=== PATIENT | female | born 1940 | race American Indian/Alaskan Native ===

== ENCOUNTER 2016-11-01 17:22 | Inpatient (IN) | payer MEDICARE ==
[2016-11-01 18:19] LABS: Basophils % (Auto) 0.3 % (0.0-1.8); Eosinophils % (Auto) 1.6 % (0.0-4.3); Hematocrit 35.5 % (30.3-42.9); Hemoglobin 11.9 gm/dl (10.1-14.3); Mean Corpuscular HGB Conc 34 % (30-34); Mean Corpuscular Hemoglobin 32 pg (28-32); Mean Corpuscular Volume 94 fl (79-97); Platelet Count 250 K/mm3 (140-440); Red Blood Count 3.77 M/mm3 (3.65-5.03); Red Cell Distribution Width 13.8 % (13.2-15.2); White Blood Count 5.6 K/mm3 (4.5-11.0)
[2016-11-01] MEDS ORDERED: ASPIRIN PO ONE (18:32)
[2016-11-01 18:38] LABS: Anion Gap 19 mmol/L; BUN/Creatinine Ratio 16.66; Blood Urea Nitrogen 10 mg/dL (7-17); Calcium 9.1 mg/dL (8.4-10.2); Carbon Dioxide 26 mmol/L (22-30); Chloride 100.3 mmol/L (98-107); Glucose 261 mg/dL (65-100); Potassium 4.5 mmol/L (3.6-5.0); Sodium 141 mmol/L (137-145)
--- NOTE | 2016-11-01 18:39 | Emergency Department Report ---
<BARBER MCCLELLAND - Last Filed: 11/01/16 19:12> ED Chest Pain HPI - General Chief Complaint: Chest Pain Stated Complaint: CHEST PAIN/ALVARO Time Seen by Provider: 11/01/16 18:24 - Related Data Home Medications Medication Instructions Recorded Confirmed Last Taken Carvedilol [Coreg] 25 mg PO BID 11/01/16 11/01/16 Unknown Furosemide [Lasix] 20 mg PO QDAY 11/01/16 11/01/16 Unknown Isosorbide Mononitrate 30 mg PO DAILY 11/01/16 11/01/16 Unknown Lisinopril [Zestril TAB] 40 mg PO QDAY 11/01/16 11/01/16 Unknown Nitroglycerin [Nitrostat] 0.4 mg SL Q5M PRN 11/01/16 11/01/16 Unknown Pravastatin (Nf) [Pravachol] 40 mg PO QHS 11/01/16 11/01/16 Unknown amLODIPine [Norvasc] 5 mg PO DAILY 11/01/16 11/01/16 Unknown glipiZIDE [Glucotrol] 5 mg PO QDAY 11/01/16 11/01/16 Unknown metFORMIN [Glucophage] 500 mg PO BID 11/01/16 11/01/16 Unknown Allergies Allergy/AdvReac Type Severity Reaction Status Date / Time morphine AdvReac Unknown Verified 11/01/16 17:45 ED Review of Systems ROS: Stated complaint: CHEST PAIN/ALVARO Other details as noted in HPI ED Past Medical Hx - Medications Home Medications: Home Medications Medication Instructions Recorded Confirmed Last Taken Type Carvedilol [Coreg] 25 mg PO BID 11/01/16 11/01/16 Unknown History Furosemide [Lasix] 20 mg PO QDAY 11/01/16 11/01/16 Unknown History Isosorbide Mononitrate 30 mg PO DAILY 11/01/16 11/01/16 Unknown History Lisinopril [Zestril TAB] 40 mg PO QDAY 11/01/16 11/01/16 Unknown History Nitroglycerin [Nitrostat] 0.4 mg SL Q5M PRN 11/01/16 11/01/16 Unknown History Pravastatin (Nf) [Pravachol] 40 mg PO QHS 11/01/16 11/01/16 Unknown History amLODIPine [Norvasc] 5 mg PO DAILY 11/01/16 11/01/16 Unknown History glipiZIDE [Glucotrol] 5 mg PO QDAY 11/01/16 11/01/16 Unknown History metFORMIN [Glucophage] 500 mg PO BID 11/01/16 11/01/16 Unknown History ED Course Vital Signs 11/01/16 11/01/16 17:40 19:41 Temperature 97.5 F L Respiratory 20 Rate Blood Pressure 154/89 O2 Sat by Pulse 95 98 Oximetry ED Medical Decision Making - Lab Data Result diagrams: 11/01/16 17:57 11/01/16 17:57 Laboratory Results - last 24 hr 11/01/16 11/01/16 11/01/16 17:57 17:57 17:57 WBC 5.6 RBC 3.77 Hgb 11.9 Hct 35.5 MCV 94 MCH 32 MCHC 34 RDW 13.8 Plt Count 250 Lymph % (Auto) 17.1 [place] % (Auto) 6.8 Eos % (Auto) 1.6 Baso % (Auto) 0.3 Lymph # 1.0 L [place] # 0.4 Eos # 0.1 Baso # 0.0 Seg Neutrophils % 74.2 H Seg Neutrophils # 4.2 Sodium 141 Potassium 4.5 Chloride 100.3 Carbon Dioxide 26 Anion Gap 19 BUN 10 Creatinine 0.6 L Estimated GFR > 60 BUN/Creatinine Ratio 16.66 Glucose 261 H Calcium 9.1 Total Bilirubin 0.40 Direct Bilirubin < 0.2 Indirect Bilirubin 0.2 AST 27 ALT 30 Alkaline Phosphatase 122 Troponin T < 0.010 Total Protein 7.0 Albumin 3.9 Albumin/Globulin Ratio 1.3 - Medical Decision Making I have seen and examined this patient myself. I agree with the PA or FAST FOOD MANAGER plan as discussed. 76-year-old female here with exertional chest pain. Patient will be admitted to the hospitalist service for chest pain rule out. Discussed with patient and hospitalist. Daniel Mcclelland Critical care attestation.: If time is entered above; I have spent that time in minutes in the direct care of this critically ill patient, excluding procedure time. ED Disposition Clinical Impression: Chest pain, Diabetes, Hypertension, SOB (shortness of breath) Disposition: OP ADMIT IP TO THIS HOSP Condition: Stable <CASH WALTERS - Last Filed: 11/01/16 21:04> ED Chest Pain HPI - General Source: patient, family Mode of arrival: Ambulatory Limitations: No Limitations - History of Present Illness MD Complaint: chest pain -: Sudden Onset: during exertion Pain Location: substernal, left chest Severity: moderate Quality: tightness, other (sob) Worsens With: exertion re: dyspnea. denies: nausea, vomting, diaphoresis Other Symptoms: denies: cough, fever, syncope, rash, acid taste in mouth, leg swelling, palpitations, burping Treatments Prior to Arrival: aspirin (this am) Aspirin use within the Past 7 Days: (1) Yes - Related Data On Oral Contraceptives: No Heart Score - HEART Score History: Slightly suspicious EKG: Non-specific Age: > 65 Risk factors: > 3 risk factors or hx of atherosclerotic disease Troponin: > 3x normal limit HEART Score: 7 ED Review of Systems Comment: Unobtainable due to pts medical conditions Constitutional: no symptoms reported, see HPI. denies: chills Eyes: as per HPI. denies: eye pain ENT: as per HPI. denies: ear pain, throat pain Respiratory: no symptoms reported, see HPI, shortness of breath, SOB with exertion. denies: cough, orthopnea, SOB at rest Cardiovascular: as per HPI, chest pain, dyspnea on exertion. denies: palpitations, orthopnea, edema, syncope Endocrine: no symptoms reported, see HPI. denies: excessive sweating, flushing Gastrointestinal: as per HPI. denies: abdominal pain, nausea, vomiting Genitourinary: as per HPI. denies: urgency, dysuria Musculoskeletal: as per HPI. denies: back pain Skin: as per HPI. denies: rash, lesions Neurological: as per HPI. denies: headache, weakness Psychiatric: as per HPI. denies: anxiety, depression Hematological/Lymphatic: as per HPI. denies: easy bleeding ED Past Medical Hx - Past Medical History Previous Medical History?: Yes Hx Hypertension: Yes Hx Heart Attack/AMI: No (no mi but does have stents) Hx Congestive Heart Failure: No (denies) Hx Diabetes: Yes Hx Asthma: No Hx COPD: No Additional medical history: Cardiac stents in 2007. hpld. denies chf. cpap for hilary. [place] Dr Jones - Surgical History Past Surgical History?: No - Social History Smoking Status: Never Smoker Substance Use Type: None ED Physical Exam - General Limitations: No Limitations General appearance: alert, anxious - Head Head exam: Present: atraumatic - Eye Eye exam: Present: PERRL - ENT ENT exam: Present: normal exam, mucous membranes moist - Neck Neck exam: Present: normal inspection. Absent: tenderness - Respiratory Respiratory exam: Present: other (cr lll; appears sob). Absent: normal lung sounds bilaterally, respiratory distress, wheezes, rales, rhonchi, stridor - Cardiovascular Cardiovascular Exam: Present: regular rate, normal rhythm, normal heart sounds, other (no edema). Absent: bradycardia, tachycardia, irregular rhythm, JVD - GI/Abdominal GI/Abdominal exam: Present: soft, normal bowel sounds - Rectal Rectal exam: Present: deferred - Extremities Exam Extremities exam: Present: normal inspection, normal capillary refill. Absent: full ROM, tenderness, pedal edema, joint swelling - Back Exam Back exam: Present: normal inspection, full ROM. Absent: tenderness, CVA tenderness (R), CVA tenderness (L) - Neurological Exam Neurological exam: Present: alert, oriented X3, CN II-XII intact, normal gait, reflexes normal. Absent: motor sensory deficit - Psychiatric Psychiatric exam: Present: normal affect, normal mood - Skin Skin exam: Present: warm, dry, intact, normal color ED Course - Reevaluation(s) Reevaluation #1: 11/01/16 18:39 to er w sob and cp p walking today pain does get better w rest she states its a tight feeling and she is sob she appears anxious no tachy active 76 y old saw cards just a couple months ago and she thinks she had a stress test then- not sure also report l heart slower than r- see 12 lead sat 100 on r asa labs 12 lead lbbb no pain on exam on admit; while laying in bed Dr. Mcclelland aware of pt presentation. 11/01/16 20:[address] Pt updated on plan Dr. Mauro is not taking any more patients- will admit at 2100 11/01/16 21:04 report to hosp for admit SONIDO score - Sonido Score Age > 65: (1) Yes Aspirin use within the Past 7 Days: (1) Yes 3 or more CAD Risk Factors: (1) Yes 2 or more Angina events in past 24 hrs: (1) Yes Known CAD with more than 50% Stenosis: (0) No ED Medical Decision Making - Lab Data Result diagrams: 11/01/16 17:57 11/01/16 17:57 - EKG Data -: EKG Interpreted by Me EKG shows normal: sinus rhythm (lbbb- presumed old based on what pt says about her left heart being slower than r) - EKG Data When compared to previous EKG there are: previous EKG unavailable - Radiology Data Radiology results: image reviewed interpreted by me: lll small pl effusion ? b patchy hf appearing? consistent w sob on admission cm - Differential Diagnosis ACS v non cardiac etiology cp; concern for atypical acs in Dm/elderly/femal ED Disposition Is pt being admited?: Yes Does the pt Need Aspirin: Yes Time of Disposition: 21:04
[2016-11-01 18:47] LABS: Alanine Aminotransferase 30 units/L (7-56); Albumin 3.9 g/dL (3.9-5); Albumin/Globulin Ratio 1.3 %; Alkaline Phosphatase 122 units/L (35-129)
[2016-11-01 18:58] LABS: Bilirubin,Direct < 0.2 mg/dL (0-0.2); Bilirubin,Indirect 0.2 mg/dL
[2016-11-01 19:32] LABS: INR 0.97 (0.87-1.13); Partial Thromboplastin Time 25.9 Sec. (24.2-36.6)
--- NOTE | 2016-11-01 19:58 | XRay Report ---
FINAL REPORT PROCEDURE: Chest. TECHNIQUE: Portable AP and lateral views. HISTORY: Chest pain. COMPARISON: No prior studies are available for comparison. FINDINGS: The heart size is mildly enlarged. There is moderate tortuosity of the thoracic aorta. There is some linear opacity in the left midlung consistent with subsegmental atelectasis or scarring. The lungs are otherwise clear. There are no pleural effusions. The soft tissues and regional skeleton are unremarkable. IMPRESSION: Mild cardiomegaly.
[2016-11-01] MEDS ORDERED: LASIX IV ONE (20:28)
[2016-11-01 20:45] LABS: Bacteria,Urine 1+ /HPF (Negative); Bilirubin,Urine NEG (Negative); Blood,Urine NEG (Negative); Ketones,Urine NEG (Negative); Leukocyte Esterase,Urine NEG (Negative); Nitrite,Urine NEG (Negative); Protein,Urine <15 mg/dL mg/dL (Negative); Urobilinogen,Urine < 2.0 mg/dL (<2.0)
--- NOTE | 2016-11-01 21:50 | Event Note ---
Date: 11/01/16 Dr. Pina Cards phoned and given report on pt. Pt has ICMO and ef of 30-30% on echo in 06/09 (inc from 1 y ago) LBBB old Admit w cards consult. Continue home meds He will see in am Hosp aware
[2016-11-01] MEDS ORDERED: K-DUR PO ONE (21:54)
[2016-11-01] MEDS ORDERED: NITROSTAT SL PRN (22:20)
[2016-11-01] MEDS ORDERED: D50W (25GM) Syringe IV PRN (22:21)
--- NOTE | 2016-11-01 22:24 | History and Physical Report ---
History of Present Illness Date of examination: 11/01/16 Chief complaint: Chest tightness History of present illness: 76-year-old -[place] female with past medical history significant for diabetes mellitus type 2, hypertension, hyperlipidemia, CAD status post 4 stents presented to the emergency department complaining of feeling tight around the mid chest. The type is getting worse when she is moving around. She has also associated short of breath. Patient denied any chest pain. Patient denied nausea or vomiting, palpitation, cough, leg swelling. Patient's EKG in the emergency department showed left bundle branch block and cardiology was consulted and stated that the patient had left bundle branch block on her previous EKG too. Patient has cardiomyopathy and ejection fraction of 30-35% in may 2016. REVIEW OF SYSTEMS: GENERAL: no weight change, no fatigue, no fever HEAD: no head ache EYES: no blurry vision, no acute visual loss EARS: no hearing loss, no discharge, no earache NOSE: no stuffiness, no sneezing, no discharge MOUTH, THROAT AND NECK: no bleeding gums, no sore throat, no swollen neck CARDIAC: no palpitations, + dyspnea on exertion, no orthopnea, no PND, no edema , no chest pain RESPIRATORY: no shortness of breath, no wheeze, no cough, no sputum, no hemoptysis, no asthma GI: no decreased appetite, no nausea, no vomiting, no dysphagia, no diarrhea, no constipation, no abdominal pain URINARY: no change in frequency, no urgency, no polyuria, no hematuria, no incontinence MUSCULOSKELETAL: no muscle weakness, no pain, no joint stiffness NEUROLOGIC: no loss of sensation/numbness, no tingling, no tremors, no weakness/ paralysis HEMATOLOGIC: no anemia, no easy bruising SKIN: no rashes ENDOCRINE: no heat/cold intolerance, no polyuria, no polydipsia, no thyroid problems, + diabetes PSYCHIATRIC: no anxiety, no depression, no suicidal ideations Past History Past Medical History: CAD, diabetes, hypertension, hyperlipidemia Past Surgical History: No surgical history Social history: full code. denies: smoking, alcohol abuse, prescription drug abuse, IV drug use Family history: no significant family history Medications and Allergies Allergies Allergy/AdvReac Type Severity Reaction Status Date / Time morphine AdvReac Unknown Verified 11/01/16 17:45 Penicillins AdvReac Unknown Verified 11/01/16 23:30 Home Medications Medication Instructions Recorded Confirmed Last Taken Type Carvedilol [Coreg] 25 mg PO BID 11/01/16 11/01/16 Unknown History Furosemide [Lasix] 20 mg PO QDAY 11/01/16 11/01/16 Unknown History Isosorbide Mononitrate 30 mg PO DAILY 11/01/16 11/01/16 Unknown History Lisinopril [Zestril TAB] 40 mg PO QDAY 11/01/16 11/01/16 Unknown History Nitroglycerin [Nitrostat] 0.4 mg SL Q5M PRN 11/01/16 11/01/16 Unknown History Pravastatin (Nf) [Pravachol] 40 mg PO QHS 11/01/16 11/01/16 Unknown History amLODIPine [Norvasc] 5 mg PO DAILY 11/01/16 11/01/16 Unknown History glipiZIDE [Glucotrol] 5 mg PO QDAY 11/01/16 11/01/16 Unknown History metFORMIN [Glucophage] 500 mg PO BID 11/01/16 11/01/16 Unknown History Active Meds: Active Medications Amlodipine Besylate (Norvasc) 5 mg PO DAILY [facility] Carvedilol (Coreg) 25 mg PO BID [facility] Dextrose (D50w (25gm) Syringe) 50 ml IV PRN PRN PRN Reason: Hypoglycemia Furosemide (Lasix) 20 mg IV DAILY [facility] Glipizide (Glucotrol) 5 mg PO QDAY [facility] Heparin Sodium (Porcine) (Heparin) 5,000 unit SUB-Q Q8HR [facility] Insulin Aspart (Novolog) 0 units SUB-Q ACHS [facility] PRN Reason: Protocol Lisinopril (Zestril) 40 mg PO QDAY [facility] Miscellaneous Medication (Isosorbide Mononitrate [Isosorbide Mononitrate]) 30 mg PO DAILY [facility] Miscellaneous Medication (Pravastatin (Nf)) 40 mg PO QHS [facility] Nitroglycerin (Nitrostat) 0.4 mg SL Q5M PRN PRN Reason: Chest Pain Exam - Physical Exam Narrative exam: Not in cardiopulmonary distress. The patient appeared well nourished and normally developed. Vital signs as documented. Head exam is unremarkable. No scleral icterus . Neck is without jugular venous distension, thyromegaly, or carotid bruits. Lungs are clear to auscultation. Cardiac exam reveals regular rate and Rhythm. First and second heart sounds normal. No murmurs, rubs or gallops. Abdominal exam reveals normal bowel sounds, no masses, no organomegaly and no aortic enlargement. Extremities trace pedal and pretibial edema. 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 No focal weakness. - Constitutional Vitals: Temp Pulse Resp BP Pulse Ox 97.7 F 84 20 153/86 100 11/01/16 21:04 11/01/16 21:04 11/01/16 21:04 11/01/16 21:04 11/01/16 21:04 Results - Labs CBC & Chem 7: 11/01/16 17:57 11/01/16 17:57 Labs: Laboratory Last Values WBC 5.6 K/mm3 (4.5-11.0) 11/01/16 17:57 RBC 3.77 M/mm3 (3.65-5.03) 11/01/16 17:57 Hgb 11.9 gm/dl (10.1-14.3) 11/01/16 17:57 Hct 35.5 % (30.3-42.9) 11/01/16 17:57 MCV 94 fl (79-97) 11/01/16 17:57 MCH 32 pg (28-32) 11/01/16 17:57 MCHC 34 % (30-34) 11/01/16 17:57 RDW 13.8 % (13.2-15.2) 11/01/16 17:57 Plt Count 250 K/mm3 (140-440) 11/01/16 17:57 Lymph % (Auto) 17.1 % (13.4-35.0) 11/01/16 17:57 [place] % (Auto) 6.8 % (0.0-7.3) 11/01/16 17:57 Eos % (Auto) 1.6 % (0.0-4.3) 11/01/16 17:57 Baso % (Auto) 0.3 % (0.0-1.8) 11/01/16 17:57 Lymph # 1.0 K/mm3 (1.2-5.4) L 11/01/16 17:57 [place] # 0.4 K/mm3 (0.0-0.8) 11/01/16 17:57 Eos # 0.1 K/mm3 (0.0-0.4) 11/01/16 17:57 Baso # 0.0 K/mm3 (0.0-0.1) 11/01/16 17:57 Seg Neutrophils % 74.2 % (40.0-70.0) H 11/01/16 17:57 Seg Neutrophils # 4.2 K/mm3 (1.8-7.7) 11/01/16 17:57 PT 12.8 Sec. (12.2-14.9) 11/01/16 19:07 INR 0.97 (0.87-1.13) 11/01/16 19:07 APTT 25.9 Sec. (24.2-36.6) 11/01/16 19:07 Sodium 141 mmol/L (137-145) 11/01/16 17:57 Potassium 4.5 mmol/L (3.6-5.0) 11/01/16 17:57 Chloride 100.3 mmol/L (98-107) 11/01/16 17:57 Carbon Dioxide 26 mmol/L (22-30) 11/01/16 17:57 Anion Gap 19 mmol/L 11/01/16 17:57 BUN 10 mg/dL (7-17) 11/01/16 17:57 Creatinine 0.6 mg/dL (0.7-1.2) L 11/01/16 17:57 Estimated GFR > 60 ml/min 11/01/16 17:57 BUN/Creatinine Ratio 16.66 % 11/01/16 17:57 Glucose 261 mg/dL (65-100) H 11/01/16 17:57 Calcium 9.1 mg/dL (8.4-10.2) 11/01/16 17:57 Total Bilirubin 0.40 mg/dL (0.1-1.2) 11/01/16 17:57 Direct Bilirubin < 0.2 mg/dL (0-0.2) 11/01/16 17:57 Indirect Bilirubin 0.2 mg/dL 11/01/16 17:57 AST 27 units/L (5-40) 11/01/16 17:57 ALT 30 units/L (7-56) 11/01/16 17:57 Alkaline Phosphatase 122 units/L (35-129) 11/01/16 17:57 Troponin T < 0.010 ng/mL (0.00-0.029) 11/01/16 20:27 NT-Pro-B Natriuret Pep 687.8 pg/mL (0-900) 11/01/16 Unknown Total Protein 7.0 g/dL (6.3-8.2) 11/01/16 17:57 Albumin 3.9 g/dL (3.9-5) 11/01/16 17:57 Albumin/Globulin Ratio 1.3 % 11/01/16 17:57 Urine Color Colorless (Yellow) 11/01/16 20:26 Urine Turbidity Clear (Clear) 11/01/16 20:26 Urine pH 6.0 (5.0-7.0) 11/01/16 20:26 Ur Specific [place] 1.005 (1.003-1.030) 11/01/16 20:26 Urine Protein <15 mg/dl mg/dL (Negative) 11/01/16 20:26 Urine Glucose (UA) 150 mg/dL (Negative) 11/01/16 20:26 Urine Ketones Neg mg/dL (Negative) 11/01/16 20:26 Urine Blood Neg (Negative) 11/01/16 20:26 Urine Nitrite Neg (Negative) 11/01/16 20:26 Urine Bilirubin Neg (Negative) 11/01/16 20:26 Urine Urobilinogen < 2.0 mg/dL (<2.0) 11/01/16 20:26 Ur Leukocyte Esterase Neg (Negative) 11/01/16 20:26 Urine WBC (Auto) 1.0 /HPF (0.0-6.0) 11/01/16 20:26 Urine RBC (Auto) 3.0 /HPF (0.0-6.0) 11/01/16 20:26 Urine Bacteria (Auto) 1+ /HPF (Negative) 11/01/16 20:26 - Imaging and Cardiology EKG: image reviewed (left bundle-branch block (old)) Chest x-ray: image reviewed (mild cardiomegaly) Assessment and Plan Assessment and plan: Chest pain/tightness Acute on chronic systolic CHF Diabetes mellitus type 2 with hyperglycemia Hyperlipidemia CAD status post stent - Cardiology consulted and said patient has previous ordered EKG at treatment which showed old left bundle branch block, EF 30-35% - Continue appropriate Home medications - Sliding scale insulin DVT prophylaxis -Heparin Disposition -To telemetry floor Advance Directives: Yes VTE prophylaxis?: Chemical Plan of care discussed with patient/family: Yes
[2016-11-01] MEDS ORDERED: PROAIR IH PRN (23:59)
[2016-11-02] MEDS ORDERED: PROVENTIL IH PRN (00:05)
[2016-11-02 00:18] LABS: INR 0.94 (0.87-1.13)
[2016-11-02] MEDS: NOVOLOG SUB-Q SCH ×5 (00:58→22:53)
[2016-11-02 05:20] LABS: Basophils % (Auto) 0.8 % (0.0-1.8); Eosinophils % (Auto) 1.9 % (0.0-4.3); Hematocrit 38.1 % (30.3-42.9); Hemoglobin 12.4 gm/dl (10.1-14.3); Mean Corpuscular HGB Conc 33 % (30-34); Mean Corpuscular Hemoglobin 31 pg (28-32); Mean Corpuscular Volume 94 fl (79-97); Platelet Count 254 K/mm3 (140-440); Red Blood Count 4.06 M/mm3 (3.65-5.03); Red Cell Distribution Width 14.2 % (13.2-15.2); White Blood Count 4.5 K/mm3 (4.5-11.0)
[2016-11-02 05:49] LABS: Anion Gap 18 mmol/L; Blood Urea Nitrogen 7 mg/dL (7-17); Calcium 9.3 mg/dL (8.4-10.2); Carbon Dioxide 27 mmol/L (22-30); Chloride 103.2 mmol/L (98-107); Cholesterol 113 mg/dL (50-199); Glucose 108 mg/dL (65-100); HDL Cholesterol 49 mg/dL (40-59); LDL Cholesterol,Direct 43 mg/dL (50-130); Potassium 3.6 mmol/L (3.6-5.0); Sodium 145 mmol/L (137-145); Triglycerides 106 mg/dL (2-149)
[2016-11-02] MEDS: HEPARIN SUB-Q SCH ×3 (07:03→22:05)
--- NOTE | 2016-11-02 07:47 | Admit Criteria Form ---
Admission Criteria Documentation: CARDIOLOGY GRG Clinical Indications for Admission to Inpatient Care ([place]/check or initial the applicable condition/criteria) Hospital admission is needed for appropriate care of the patient because of ANY ONE of the following: [ ] I. Hemodynamic instability as indicated by ALL of the following (1)(2)(3) (4)(5)(6)(7)(8)(9)(10) [ ]a) Vital sign abnormality not readily corrected by appropriate treatment with 12-24 hours for ANY ONE: [ ]i) Hypotension that persists despite appropriate treatment (eg, volume repletion) [ ]ii) Tachycardiathat persists despite appropriate tx ( e.g., analgesia, fluids, sedation as indicated [ ]iii) Orthostatic vital sign changes that persists despite appropriate treatment (eg, volume repletion) [ ]b) Vital sign abnormailty that is severe indicated by ANY ONE of the following: [ ]i) Inadequate perfusion indicated by ANY ONE of the following: [ ] 1) Lactic acidosis (> 2 mmol/L) [ ] 2) New abnormal capillary refill (> 3 seconds) [ ] 3) Reduced urine output [ ] 4) New altered mental status [ ] 5) Myocardial Ischemia [ ] 6) Other metabolic acidosis (arterial pH <7.35 ) not otherwise explained. [ ]ii) Mean arterial pressure[A] less than 60 mm Hg [ ]iii) Mean arterial pressure[A] less than 70 mm Hg after 30 minutes of appropriate treatment (eg, fluid resuscitation) [ ]iv) Sustained heart rate greater than 120 beats per minute in adult or child 6 years or older[B] [ ]v) IV inotropic or vasopressor medication required to maintain adequate blood pressure or perfusion [ ] II. Severe heart failure as indicated by ANY ONE of the following(17)(18) [ ]a) Respiratory distress [ ]b) Hypotension [ ]c) Debilitating anasarca refractory to therapy (eg, tissue breakdown with infection)[C](19) [ ]d) Cardiac arrhythmias of immediate concern [ ]e) Myocardial ischemia [ ] III. Cardiac arrhythmias or findings of immediate concern indicated by ANY ONE of the following (21)(22): [ ] a) Heart rhythms that are inherently dangerous or unstable indicated by ANY ONE of the following (23)(24)(25): [ ] i) Resuscitated ventricular fibrillation or cardiac arrest [ ] ii) Ventricular escape rhythm [ ] iii) Sustained ventricular tachycardia (30 seconds or more of ventricular rhythm at greater than 100 beats per minute) [ ] iv) Nonsustained ventricular tachycardia and ANY ONE of the following: [ ] 1) Suspected cardiac ischemia as cause or consequence of ventricular tachycardia [ ] 2) Acute myocarditis [ ] b) Unstable cardiac conduction defects indicated by ANY ONE of the following(25)(26)(27) [ ] i) Type II second-degree atrioventricular block [ ]ii) Third-degree atrioventricular block [ ]iii) New-onset left bundle branch block with suspected myocardial ischemia [ ]c) Any heart rhythm and ANY ONE of the following (23)(24)(28)(29) (30) [ ] i) Continuous long-term ECG monitoring needed (e.g., initiation of drug requiring monitoring for more than 24 hours) [ ] ii) Patient has automatic implanted cardioverter defibrillator that is repeatedly firing, malfunctioning, or in need of immediate adjustment of settings beyond the scope of ambulatory or observation care [ ]d) Heart rhythms of concern due to ANY ONE of the following: [ ] i) Hypotension [ ] ii) Respiratory distress [ ] iii) Association with other significant symptoms (e.g., bradycardia with syncope or ongoing dizziness, supraventricular tachycardia with chest pain (28)(29)(31) [ ] IV. Monitoring for cardiac contusion beyond the scope of observation care needed [A](32)(33)(34) [ ] V. Surgical or device complication (e.g., valve replacement complication , ICD disfunction or pacemaker dysfunction) (49)(50)(51)(52)(53)(54) [ ] . Inpatient palliative care needed. [F](51)(52) Also use Inpatient Palliative Care Criteria [ ] VII. Nonbacterial thrombotic (marantic) endocarditis(43)(44)(55)(56)(57) [X] VIII. Cardiology condition, symptom, or finding for which emergency and observation care has failed or are not considered appropriate. [ ] IX. Acute valvular disease requiring inpatient as indicated by ANY ONE of the following (40)(41) [ ]a) Acute valvular regurgitation (42) [ ]b) Noninfectious valvulitis (43)(44) [ ]c) Obstructive valve thrombosis (45)(46) [ ]d) Paravalvular leak(47)(48) [ ]e) Other significant valvular disorder remaining after emergency or observation level of care (as appropriate) [ ]X. Pericardial disease requiring inpatient treatment as indicated by ANY ONE of the following (35)(36)(37)(38) [ ]a) Suspected tamponade [ ]b) Hemopericardium [ ]c) Other significant pericardial disorder remaining after emergency or observation level of care (as appropriate)(39) [ ] XI. Cardiac ischemia beyond scope of emergency and observation care. [ ] XII. Cyanotic heart disease requiring inpatient care as indicated by 1 or more of the following(58)(59)(60): [ ]a) Acute onset of hypoxemia [ ]b) Exacerbation [ ] XIII. Hypertension requiring inpatient treatment as indicated by ANYONE of the following(11)(12)(13)(14): [ ]a) Severe hypertension (SBP greater than 180 mm Hg or DBP greater than 110 mm Hg, or greater than the 95th percentile for age, gender, and height in pediatric patients) that cannot be controlled (eg, to SBP less than 160 mm Hg and DBP less than 100 mm Hg) by emergency department or observation care treatment(15) [ ]b) Acute end organ damage secondary to hypertension (SBP greater than 140 mm Hg or DBP greater than 90 mm Hg) as indicated by ANYONE of the following: [ ] i) Hypertensive encephalopathy (eg, Altered mental status)(16) [ ] ii) Cerebral infarction [ ] iii) Intracranial hemorrhage [ ] iv) Myocardial ischemia or infarction [ ] v) Heart failure (eg, pulmonary edema) [ ] vi) Aortic dissection [ ] vii) Increased creatinine (new) with reduction of more than 50% in estimated glomerular filtration rate from baseline [ ] viii) Papilledema [ ] ix) Retinal hemorrhage [ ] x) Microangiopathic hemolytic anemia [ ] xi) Seizure [ ] xii) Other significant finding secondary to hypertension [ ] XIV. Complications of transplanted heart indicated by ANY ONE of the following(61): [ ]a) Acute graft rejection requiring inpatient management (eg, intravenous imunosuppression)(62)(63) [ ]b) Acute graft heart failure indicated by ANY ONE of the following(64): [ ] i) Hemodynamic instability [ ] ii) Cardiac arrhythmias of immediate concern [ ] iii) Pulmonary edema that is very severe (eg, mechanical ventilation needed, imminent or likely, need for 100% oxygen to keep oxygen saturation above 90%) [ ] iv) Pulmonary edema that is persistent as indicated by ALL of the following: [ ] 1) New need for oxygen therapy to keep oxygen saturation above 90 % (or increased FiO2 need from baseline) [ ] 2) Has not improved sufficiently with emergency department or observation care IV diuretics or other heart failure treatments[E]. [ ] iv) Altered mental status that is severe or persistent [ ] iv) Increased creatinine (new on laboratory test) with reduction of more than 50% in estimated glomerular filtration rate from baseline [ ] iv) Progressively (ongoing) rising creatinine (known from past laboratory test) with reduction of more than 25% in estimated glomerular filtration rate from baseline [ ] iv) Acute renal failure [ ] iv) Acute peripheral ischemia (eg, examination shows pulseless, cool, mottled, or cyanotic extremity) [ ] iv) Pulmonary artery catheter monitoring needed [ ] iv) Other sign or symptom of heart failure requiring inpatient treatment (ie, too severe or not responsive to outpatient and observation care treatment) [ ]c) Infection requiring inpatient management (eg, Hemodynamic instability, need for intravenous antimicrobial treatment)(66)(67)(68)(69)(70) [ ]d) Cardiac allograft vasculopathy requiring inpatient management (eg evidence of cardiacischemia)(71) [ ]e) Other complication of transplanted heart (eg, stroke, severe pulmonary hypertension, severe valvular dysfunction) requiring inpatient management(72) The original [employer] content created by [employer] has been revised. The portions of the content which have been revised are identified through the use of italic text or in bold, and [facility] has neither reviewed nor approved the modified material. All other unmodified content is copyright [employer]. Please see references footnoted in the original [employer] edition 2017 Admission Criteria Met: Yes
[2016-11-02] MEDS: COREG PO SCH ×2 (09:45→22:05)
[2016-11-02] MEDS: ZESTRIL PO SCH (09:45)
[2016-11-02] MEDS: NORVASC PO SCH (09:45)
[2016-11-02] MEDS: IMDUR PO SCH (09:45)
[2016-11-02] MEDS: GLUCOTROL PO SCH (09:45)
[2016-11-02] MEDS ORDERED: LASIX IV SCH (10:00)
--- NOTE | 2016-11-02 10:24 | Consultation ---
History of Present Illness Consult date: 11/02/16 Requesting physician: ISABELLE CONKLIN Consult reason: chest pain, congestive heart failure History of present illness: This is a 76-year-old female history of hypertension hyperlipidemia congestive heart failure coronary disease left bundle branch block who follows with [facility] who normal baseline is able do her daily activities without shortness of breath able to walk up one or 2 flights of stairs. Patient states that she became short of breath and had chest pain. Patient's chest x-ray showed mild congestion as per the ED. Patient states compliance with medication and diet. Patient's chest pain is described as left-sided nonradiating nonreproducible no aggravating or relieving factors dull in nature lasting for a few minutes Past History Past Medical History: CAD, diabetes, heart failure, hypertension, hyperlipidemia Past Surgical History: No surgical history Social history: full code. denies: smoking, alcohol abuse, prescription drug abuse, IV drug use Family history: no significant family history Medications and Allergies Allergies Allergy/AdvReac Type Severity Reaction Status Date / Time morphine AdvReac Unknown Verified 11/01/16 17:45 Penicillins AdvReac Unknown Verified 11/01/16 23:30 Home Medications Medication Instructions Recorded Confirmed Last Taken Type Carvedilol [Coreg] 25 mg PO BID 11/01/16 11/01/16 Unknown History Furosemide [Lasix] 20 mg PO QDAY 11/01/16 11/01/16 Unknown History Isosorbide Mononitrate 30 mg PO DAILY 11/01/16 11/01/16 Unknown History Lisinopril [Zestril TAB] 40 mg PO QDAY 11/01/16 11/01/16 Unknown History Nitroglycerin [Nitrostat] 0.4 mg SL Q5M PRN 11/01/16 11/01/16 Unknown History Pravastatin (Nf) [Pravachol] 40 mg PO QHS 11/01/16 11/01/16 Unknown History amLODIPine [Norvasc] 5 mg PO DAILY 11/01/16 11/01/16 Unknown History glipiZIDE [Glucotrol] 5 mg PO QDAY 11/01/16 11/01/16 Unknown History metFORMIN [Glucophage] 500 mg PO BID 11/01/16 11/01/16 Unknown History Active Meds: Active Medications Albuterol (Proventil) 2.5 mg IH Q6HRT PRN PRN Reason: Shortness Of Breath Amlodipine Besylate (Norvasc) 5 mg PO DAILY [facility] Last Admin: 11/02/16 09:45 Dose: 5 mg Aspirin (Baby Aspirin) 81 mg PO QDAY [facility] Carvedilol (Coreg) 25 mg PO BID [facility] Last Admin: 11/02/16 09:45 Dose: 25 mg Dextrose (D50w (25gm) Syringe) 50 ml IV PRN PRN PRN Reason: Hypoglycemia Furosemide (Lasix) 20 mg PO QDAY [facility] Glipizide (Glucotrol) 5 mg PO QDAY@0800 [facility] Last Admin: 11/02/16 09:45 Dose: 5 mg Heparin Sodium (Porcine) (Heparin) 5,000 unit SUB-Q Q8HR [facility] Last Admin: 11/02/16 07:03 Dose: 5,000 unit Insulin Aspart (Novolog) 0 units SUB-Q ACHS [facility] PRN Reason: Protocol Last Admin: 11/02/16 08:32 Dose: Not Given Isosorbide Mononitrate (Imdur) 30 mg PO DAILY [facility] Last Admin: 11/02/16 09:45 Dose: 30 mg Lisinopril (Zestril) 40 mg PO QDAY [facility] Last Admin: 11/02/16 09:45 Dose: 40 mg Nitroglycerin (Nitrostat) 0.4 mg SL Q5M PRN PRN Reason: Chest Pain Simvastatin (Zocor) 20 mg PO QHS [facility] Review of Systems All systems: negative (HPI) Physical Examination Vital Signs Temp BP Pulse Ox 97.5 F L 154/89 95 11/01/16 17:40 11/01/16 17:40 11/01/16 17:40 General appearance: no acute distress, well-nourished HEENT: Positive: PERRL, Mucus Membranes Moist Neck: Positive: neck supple, trachea midline Cardiac: Positive: Reg Rate and Rhythm, S1/S2. Negative: Audible Murmur Lungs: Positive: clear to auscultation, Normal Breath Sounds Neuro: Positive: Grossly Intact Abdomen: Positive: Soft, Active Bowel Sounds. Negative: Tender, Distended Female genitourinary: deferred Skin: Positive: Clear Incision: Cardiac Cath Site Musculoskeletal: No Pain, Normal Range of Motion Extremities: Present: normal. Absent: edema Results 11/02/16 04:42 11/02/16 04:43 Coagulation 11/01/16 Range/Units 23:34 PT 12.5 (12.2-14.9) Sec. INR 0.94 (0.87-1.13) APTT 27.0 (24.2-36.6) Sec. Lipids 11/02/16 Range/Units 04:43 Triglycerides 106 (2-149) mg/dL Cholesterol 113 (50-199) mg/dL HDL Cholesterol 49 (40-59) mg/dL Cholesterol/HDL Ratio 2.30 % CBC 11/02/16 Range/Units 04:42 WBC 4.5 (4.5-11.0) K/mm3 RBC 4.06 (3.65-5.03) M/mm3 Hgb 12.4 (10.1-14.3) gm/dl Hct 38.1 (30.3-42.9) % Plt Count 254 (140-440) K/mm3 Lymph # 1.1 L (1.2-5.4) K/mm3 [place] # 0.4 (0.0-0.8) K/mm3 Eos # 0.1 (0.0-0.4) K/mm3 Baso # 0.0 (0.0-0.1) K/mm3 Comprehensive Metabolic Panel 11/02/16 Range/Units 04:43 Sodium 145 (137-145) mmol/L Potassium 3.6 (3.6-5.0) mmol/L Chloride 103.2 (98-107) mmol/L Carbon Dioxide 27 (22-30) mmol/L BUN 7 (7-17) mg/dL Creatinine 0.4 L (0.7-1.2) mg/dL Glucose 108 H (65-100) mg/dL Calcium 9.3 (8.4-10.2) mg/dL - Imaging and Cardiology Echo: report reviewed (05/2016 EF 30-35% with mild MR mild TR) EKG interpretations - Telemetry EKG Rhythm: Sinus Rhythm (left bundle-branch block) Assessment and Plan Acute on chronic systolic heart failure Acute respiratory failure Chest pain CAD Hypertension Hyperlipidemia Ischemic cardio myopathy Recommend patient states has been offered an AICD in the past and has declined as patient is a [place] heart class is 102 but patient's symptoms brought into the hospital for chest pain and shortness of breath patient feeling better after the IV Lasix last year's stress test showed infarction in the anterior region were repeat Lexiscan any new ischemia as a cause of her chest pain and shortness of breath and repeat echocardiogram for worsening LV function. Continue current home medications
[2016-11-02] MEDS: BABY ASPIRIN PO SCH (17:00)
--- NOTE | 2016-11-02 18:29 | Progress Note ---
Assessment and Plan Assessment and plan: Chest pain. For stress test in am History Interval history: chest pain Hospitalist Physical - Physical exam Narrative exam: Gen Appearance: Not in acute distress, HEENT: normocephalic, atraumatic Neck: supple, no JVD Lungs: clear to auscultation bilaterally, no crackles or wheezes Heart: S1 and S2 regular, no murmurs or gallop Abdomen: Soft , non tender, non distended, normal bowel sounds Extremity:Bilateral edema, no clubbing or cyanosis Neuro : Awake, alert,oriented x 3, moves all extremitie - Constitutional Vitals: Temp Pulse Resp BP Pulse Ox 99.0 F 88 18 147/77 95 11/02/16 16:00 11/02/16 18:28 11/02/16 16:00 11/02/16 16:00 11/02/16 16:00 General appearance: Present: no acute distress, well-nourished Results - Labs CBC & Chem 7: 11/02/16 04:42 11/02/16 04:43 Labs: Laboratory Last Values WBC 4.5 K/mm3 (4.5-11.0) 11/02/16 04:42 RBC 4.06 M/mm3 (3.65-5.03) 11/02/16 04:42 Hgb 12.4 gm/dl (10.1-14.3) 11/02/16 04:42 Hct 38.1 % (30.3-42.9) 11/02/16 04:42 MCV 94 fl (79-97) 11/02/16 04:42 MCH 31 pg (28-32) 11/02/16 04:42 MCHC 33 % (30-34) 11/02/16 04:42 RDW 14.2 % (13.2-15.2) 11/02/16 04:42 Plt Count 254 K/mm3 (140-440) 11/02/16 04:42 Lymph % (Auto) 24.0 % (13.4-35.0) 11/02/16 04:42 [place] % (Auto) 9.7 % (0.0-7.3) H 11/02/16 04:42 Eos % (Auto) 1.9 % (0.0-4.3) 11/02/16 04:42 Baso % (Auto) 0.8 % (0.0-1.8) 11/02/16 04:42 Lymph # 1.1 K/mm3 (1.2-5.4) L 11/02/16 04:42 [place] # 0.4 K/mm3 (0.0-0.8) 11/02/16 04:42 Eos # 0.1 K/mm3 (0.0-0.4) 11/02/16 04:42 Baso # 0.0 K/mm3 (0.0-0.1) 11/02/16 04:42 Seg Neutrophils % 63.6 % (40.0-70.0) 11/02/16 04:42 Seg Neutrophils # 2.8 K/mm3 (1.8-7.7) 11/02/16 04:42 PT 12.5 Sec. (12.2-14.9) 11/01/16 23:34 INR 0.94 (0.87-1.13) 11/01/16 23:34 APTT 27.0 Sec. (24.2-36.6) 11/01/16 23:34 Sodium 145 mmol/L (137-145) 11/02/16 04:43 Potassium 3.6 mmol/L (3.6-5.0) 11/02/16 04:43 Chloride 103.2 mmol/L (98-107) 11/02/16 04:43 Carbon Dioxide 27 mmol/L (22-30) 11/02/16 04:43 Anion Gap 18 mmol/L 11/02/16 04:43 BUN 7 mg/dL (7-17) 11/02/16 04:43 Creatinine 0.4 mg/dL (0.7-1.2) L 11/02/16 04:43 Estimated GFR > 60 ml/min 11/02/16 04:43 BUN/Creatinine Ratio 17.50 % 11/02/16 04:43 Glucose 108 mg/dL (65-100) H 11/02/16 04:43 POC Glucose 222 (70-105) H 11/02/16 00:48 Hemoglobin A1c 8.7 % (4-6) H 11/01/16 23:34 Calcium 9.3 mg/dL (8.4-10.2) 11/02/16 04:43 Total Bilirubin 0.40 mg/dL (0.1-1.2) 11/01/16 17:57 Direct Bilirubin < 0.2 mg/dL (0-0.2) 11/01/16 17:57 Indirect Bilirubin 0.2 mg/dL 11/01/16 17:57 AST 27 units/L (5-40) 11/01/16 17:57 ALT 30 units/L (7-56) 11/01/16 17:57 Alkaline Phosphatase 122 units/L (35-129) 11/01/16 17:57 Troponin T < 0.010 ng/mL (0.00-0.029) 11/02/16 04:43 NT-Pro-B Natriuret Pep 687.8 pg/mL (0-900) 11/01/16 Unknown Total Protein 7.0 g/dL (6.3-8.2) 11/01/16 17:57 Albumin 3.9 g/dL (3.9-5) 11/01/16 17:57 Albumin/Globulin Ratio 1.3 % 11/01/16 17:57 Triglycerides 106 mg/dL (2-149) 11/02/16 04:43 Cholesterol 113 mg/dL (50-199) 11/02/16 04:43 LDL Cholesterol Direct 43 mg/dL (50-130) L 11/02/16 04:43 HDL Cholesterol 49 mg/dL (40-59) 11/02/16 04:43 Cholesterol/HDL Ratio 2.30 % 11/02/16 04:43 Urine Color Colorless (Yellow) 11/01/16 20:26 Urine Turbidity Clear (Clear) 11/01/16 20:26 Urine pH 6.0 (5.0-7.0) 11/01/16 20:26 Ur Specific [place] 1.005 (1.003-1.030) 11/01/16 20:26 Urine Protein <15 mg/dl mg/dL (Negative) 11/01/16 20:26 Urine Glucose (UA) 150 mg/dL (Negative) 11/01/16 20:26 Urine Ketones Neg mg/dL (Negative) 11/01/16 20:26 Urine Blood Neg (Negative) 11/01/16 20:26 Urine Nitrite Neg (Negative) 11/01/16 20:26 Urine Bilirubin Neg (Negative) 11/01/16 20:26 Urine Urobilinogen < 2.0 mg/dL (<2.0) 11/01/16 20:26 Ur Leukocyte Esterase Neg (Negative) 11/01/16 20:26 Urine WBC (Auto) 1.0 /HPF (0.0-6.0) 11/01/16 20:26 Urine RBC (Auto) 3.0 /HPF (0.0-6.0) 11/01/16 20:26 Urine Bacteria (Auto) 1+ /HPF (Negative) 11/01/16 20:26
[2016-11-02] MEDS ORDERED: ZOCOR PO SCH (22:00)
[2016-11-03] MEDS: HEPARIN SUB-Q SCH ×2 (06:25→13:21)
[2016-11-03] MEDS: NOVOLOG SUB-Q SCH ×2 (08:23→13:21)
[2016-11-03] MEDS: GLUCOTROL PO SCH (08:23)
[2016-11-03] MEDS ORDERED: LASIX PO SCH (10:00)
--- NOTE | 2016-11-03 10:36 | Progress Note ---
Assessment and Plan Lexiscan stress test with nuclear imaging today. - Patient Problems (1) Chest pain Current Visit: Yes Status: Acute Qualifiers: Chest pain type: C Ischemic chest pain type: I (2) Acute on chronic systolic heart failure Current Visit: Yes Status: Acute (3) CAD (coronary artery disease) Current Visit: Yes Status: Acute Qualifiers: Coronary Disease-Associated Artery/Lesion type: [place] artery [place] vs. transplanted heart: [place] heart Associated angina: A (4) Stented coronary artery Current Visit: Yes Status: Chronic (5) Ischemic cardiomyopathy Current Visit: Yes Status: Chronic (6) Hypertension Current Visit: Yes Status: Chronic Qualifiers: Hypertension type: essential hypertension Qualified Code(s): I10 - Essential (primary) hypertension Subjective Date of service: 11/03/16 Principal diagnosis: CP, Acute on chronic SHF, CAD, s/p PCI Interval history: No chest pain this moment. No shortness of breath. Objective Vital Signs Last Vital Signs Temp 97.9 F 11/03/16 04:35 Pulse 82 11/03/16 04:35 Resp 18 11/03/16 04:35 BP 155/89 11/03/16 04:35 Pulse Ox 97 11/03/16 04:35 - Physical Examination General: No Apparent Distress HEENT: Positive: EOMI, Mucus Membranes Moist Neck: Positive: neck supple, trachea midline Cardiac: Positive: Reg Rate and Rhythm, S1/S2 Lungs: Positive: clear to auscultation Neuro: Positive: Grossly Intact Abdomen: Positive: Soft, Active Bowel Sounds. Negative: Tender, Distended Skin: Positive: Clear Incision: Cardiac Cath Site Musculoskeletal: No Pain, Normal Range of Motion Extremities: Present: normal. Absent: edema - Imaging and Cardiology EKG: image reviewed (left bundle-branch block (old)) Echo: report reviewed (05/2016 EF 30-35% with mild MR mild TR)
[2016-11-03] MEDS ORDERED: IMDUR PO SCH (10:37)
[2016-11-03] MEDS ORDERED: LEXISCAN IV ONE (11:21)
[2016-11-03] MEDS: NORVASC PO SCH (13:21)
[2016-11-03] MEDS: BABY ASPIRIN PO SCH (13:21)
[2016-11-03] MEDS: COREG PO SCH (13:21)
[2016-11-03] MEDS: ZESTRIL PO SCH (13:21)
[2016-11-03] MEDS: IMDUR PO SCH (13:41)
--- NOTE | 2016-11-03 13:51 | Discharge Summary ---
Providers - Providers Date of Admission: 11/01/16 22:17 Date of discharge: 11/03/16 Attending physician: EVANGELINA VALENCIA Primary care physician: TAWNYA HERNÁNDEZ Hospitalization Condition: Good Disposition: DC-01 TO HOME OR SELFCARE - Discharge Diagnoses (1) Acute on chronic systolic heart failure Status: Acute (2) CAD (coronary artery disease) Status: Acute Qualifiers: Coronary Disease-Associated Artery/Lesion type: [place] artery [place] vs. transplanted heart: [place] heart Associated angina: A (3) Chest pain Status: Acute Qualifiers: Chest pain type: C Ischemic chest pain type: I (4) Ischemic cardiomyopathy Status: Chronic Core Measure Documentation - Palliative Care Palliative Care/ Comfort Measures: Not Applicable - Core Measures Any of the following diagnoses?: heart failure - Heart Failure Discharge Requirements SUJATA/ARB for LVSD if EF <40%: Yes Beta amandeep at discharge: Yes Exam - Constitutional Vitals: Temp Pulse Resp BP Pulse Ox 97.9 F 82 18 155/89 97 11/03/16 04:35 11/03/16 04:35 11/03/16 04:35 11/03/16 04:35 11/03/16 04:35 Plan Activity: advance as tolerated Diet: low fat, low cholesterol, low salt, diabetic Additional Instructions: 1.Follow up with PCP in 1 week Follow up with: TAWNYA HERNÁNDEZ MD [Primary Care Provider] - 7 Days Prescriptions: Aspirin EC [Aspirin Enteric Coated TAB] 81 mg PO QDAY #30 tablet. Famotidine [Pepcid] 20 mg PO BID #30 tablet
--- NOTE | 2016-11-04 04:48 | Treadmill Report ---
NUCLEAR STUDY REASON FOR STUDY: Chest pain. IMAGING PROTOCOL: The patient received 10 mCi of Technetium 99m Tetrofosmin for resting image and 28 mCi of Technetium 99m Tetrofosmin for stress imaging. The imaging for the whole procedure was completed 30-90 minutes following the initial injection of Technetium 99m tetrofosmin. The SPECT imaging in the 180 degree arc was performed in the right anterior oblique projection. Computerized reconstruction of the images was performed for analysis. IMAGING RESULTS: Cavity is dilated on both stress and rest. Distribution radionuclide is normal in the anterior, inferior, septal, lateral. Moderate decrease in the anteroapical region seen on stress and rest. Gated SPECT, EF of 17% with severe global hypokinesis. The patient infused Lexiscan with no EKG changes. SUMMARY: 1. Negative Lexiscan EKG. Baseline rhythm is sinus with left bundle. 2. The patient has a dilated LV on both stress and rest with a moderate anteroapical infarction with normal perfusion in the septal, lateral, and inferior anterior region with gated SPECT, EF of 17%, no significant ischemia noted, severe global hypokinesis. JOB# [id number] EVELINA/ALEXIS HSIEH
[2016-11-04 10:23] VITALS: BP 176/101
== END 2016-11-03 15:06 | disposition home or self-care (01) | DRG 291 ==
LOC: ED 17:22 → 4A 22:17
PROVIDERS: ADMIT Internal Medicine; ATTEND Internal Medicine
DX: I11.0 Hypertensive heart disease with heart failure (principal); J96.00 Acute respiratory failure, unspecified whether with hypoxia or hypercapnia; I50.23 Acute on chronic systolic (congestive) heart failure; R07.89 Other chest pain; Z88.5 Allergy status to narcotic agent; Z88.0 Allergy status to penicillin; E78.5 Hyperlipidemia, unspecified; I25.10 Atherosclerotic heart disease of native coronary artery without angina pectoris; E11.65 Type 2 diabetes mellitus with hyperglycemia; I25.5 Ischemic cardiomyopathy
CPT/HCPCS: 36415; 71020; 78452; 80048; 80061; 80074; 81001; 82962; 83036; 83880; 84484; 85025; 85610; 85730; 93005; 93010; 93017; 96374; A9502; J1644; J1815; J1940; J2785